=== PATIENT | female | born 1950 | race Two or more races ===

== ENCOUNTER 2018-11-17 10:55 | Emergency (ER) | payer SELFPAY ==
[2018-11-17] MEDS ORDERED: MECLIZINE HCL 25 MG TABLET PO ONE (11:31)
[2018-11-17] MEDS ORDERED: NORMAL SALINE 1000 ML 1,000 ML IV ONE (11:32)
--- NOTE | 2018-11-17 11:42 | ER Document Report ---
ED General - General Chief Complaint: Dizziness Stated Complaint: DIZZINESS/VISION PROBLEMS Time Seen by Provider: 11/17/18 11:30 Primary Care Provider: ABBE QUINTERO MD [ACTIVE STAFF] - 11/19/18 TRAVEL OUTSIDE OF THE [place] IN LAST 30 DAYS: No - HPI Notes: Patient is a 68-year-old female with history of hypertension and type 2 diabetes who presents complaining of feeling dizzy and having right-sided headache and right-sided eye pain with double vision with the right eye being open over the past 2 days. No recent illness. She has not noticed any drainage from her eye or injury. She is able to eat and drink without difficulty. She is urinating normally. Patient has not fallen, but does feel unsteady when she is walking. This is not the worst headache of her life and did not reach maximal intensity at initial onset. Denies any fever, head injury, neck pain, changes in speech/mentation/hearing, URI, sore throat, chest pain, palpitations, syncope, cough, shortness of breath, wheeze, dyspnea, abdominal pain, nausea/vomiting/diarrhea, urinary retention, dysuria, hematuria, loss of control of bowel or bladder, numbness/tingling, saddle anesthesia, muscle par alysis/weakness, or rash. - Related Data Allergies/Adverse Reactions: meperidine HCl [From Demerol] Allergy (Verified 08/10/13 08:10) increased SOB Past Medical History - Social History Smoking Status: Current Every Day Smoker Frequency of alcohol use: None Drug Abuse: None Family History: Reviewed & Not Pertinent Patient has suicidal ideation: No Patient has homicidal ideation: No - Past Medical History Cardiac Medical History: Reports: Hx Hypertension Pulmonary Medical History: Denies: Hx Tuberculosis Endocrine Medical History: Reports: Hx Diabetes Mellitus Type 2 Psychiatric Medical History: Denies: Hx Depression - Immunizations Hx Diphtheria, Pertussis, Tetanus Vaccination: Yes Review of Systems - Review of Systems -: Yes All other systems reviewed and negative Physical Exam - Vital signs Vitals: Temp Pulse Resp BP Pulse Ox 98.2 F 98 15 147/86 H 92 11/17/18 11:14 11/17/18 11:14 11/17/18 11:14 11/17/18 11:14 11/17/18 11:14 - Notes Notes: PHYSICAL EXAMINATION: GENERAL: Well-appearing, well-nourished and in no acute distress. A&Ox4. Answers questions appropriately. HEAD: Atraumatic, normocephalic. Non-tender. EYES: Pupils equal round and reactive to light, extraocular movements intact, sclera anicteric, conjunctiva are normal. No nystagmus. + mild tenderness rt orbit near trigeminal area. ENT: EAC clear b/l. TM's intact b/l without erythema, fluid, or perforation. Nares patent and without discharge. oropharynx clear without exudates. No tonsilar hypertrophy or erythema. Moist mucous membranes. No sinus tenderness. Wood's lamp/flourescein: No abrasion, laceration, ulceration, or lyle sign noted. No obvious foreign body appreciated. Tonopen: Pressure in each eye 23 average b/l. NECK: Normal range of motion, supple without lymphadenopathy. No rigidity/ meningismus. No midline tenderness. LUNGS: Breath sounds clear to auscultation bilaterally and equal. No wheezes rales or rhonchi. HEART: Regular rate and rhythm without murmurs, rubs, gallops. ABDOMEN: Soft, nontender, nondistended abdomen. No guarding, no rebound. Normal bowel sounds present. No CVA tenderness bilaterally. Musculoskeletal: Ext b/l: FROM to passive/active. Strength 5+/5. No deficits noted. No bony tenderness of extremities. Extremities: No cyanosis, clubbing, or edema b/l. Peripheral pulses 2+. Capillary refill less than 2 seconds. NEUROLOGICAL: NIH 0. GCS 15. Cranial nerves grossly intact. Normal speech, normal gait and can ambulate in room w/o difficulty. Normal sensory, motor exams. Reflexes 2+ b/l. GREGORY's negative. Pronator drift negative. Heel/santiago, finger/nose wnl. Romberg neg. PSYCH: Normal mood, normal affect. SKIN: Warm, Dry, normal turgor, no rashes or lesions noted. Course - Re-evaluation Re-evalutation: 11/17/18 13:[address] Hernandez who agrees with dispo/plan (no further work up warranted): Patient is an afebrile, well-hydrated, 68-year-old female who presents to the ED with a headache and vision change, suspect trigeminal neuralgia. Vitals are acceptable without any significant tachycardia, tachypnea, or hypoxia. PE is otherwise unremarkable for any focal neurological deficits. NIH 0, GCS 15, cranial nerves grossly intact. CT head and labs unremarkable including cardiacs and ESR/CRP. Eye exam unremarkable with equal pressures b/l. No other labs or imaging warranted at this time based on H&P. Pt has not had any CP, SOB, SIERRA, syncope. Patient was given Toradol, meclizine, and benadryl which has improved her headache. She is nontoxic-appearing and is tolerating p.o. without any difficulties. Low suspicion for any acute glaucoma, temporal arteritis, meningitis, intracranial hemorrhage, ischemic stroke, Temporal arteritis, or fracture at this time. Patient is aware that this condition can change from initial presentation and that she needs to monitor symptoms closely for any acute changes. Rx for gabapentin. Recheck with your PCM/neurologist in 3-5 days. Return to the ED with any worsening/concerning symptoms otherwise as reviewed in discharge. Patient is in agreement. - Vital Signs Vital signs: Temp Pulse Resp BP Pulse Ox 98.2 F 98 15 147/86 H 92 11/17/18 11:14 11/17/18 11:14 11/17/18 11:14 11/17/18 11:14 11/17/18 11:14 - Laboratory Result Diagrams: 11/17/18 11:45 11/17/18 11:45 Laboratory results interpreted by me: 11/17/18 11/17/18 11:45 11:45 RDW 14.8 H Est GFR (MDRD) Non-Af 58 L Glucose 115 H Discharge - Discharge Clinical Impression: Trigeminal neuralgia Headache Qualifiers: Headache type: unspecified Headache chronicity pattern: acute headache Intractability: not intractable Qualified Code(s): R51 - Headache Condition: Stable Disposition: HOME, SELF-CARE Instructions: Trigeminal Neuralgia ([facility]) Additional Instructions: Rest, Ice/cool compress Tylenol/ibuprofen as needed Light stretches daily Strength exercises as able Moist heat and massage may help F/u with your PCP in 2-3 days for a recheck Consider consult(s) with Neurology for ongoing/worsening symptoms Return to the ED with any worsening symptoms and/or development of fever, headache, changes in behavior/mentation/vision/speech, chest pain, palpitations, syncope, shortness of breath, trouble breathing, abdominal pain, n/v/d, blood in stool/urine, loss of control of bowel/bladder, urinary retention, muscle weakness/paralysis, saddle anesthesia, numbness/tingling, or other worsening symptoms that are concerning to you. Prescriptions: Gabapentin [Neurontin 100 mg Capsule] 100 mg PO ASDIR PRN #15 capsule PRN Reason: Hydrocodone/Acetaminophen [Starbuck 5-325 mg Tablet] 1 tab PO TID PRN #10 tablet PRN Reason: Forms: Elevated Blood Pressure Referrals: ABBE QUINTERO MD [ACTIVE STAFF] - 11/19/18
[2018-11-17 11:58] LABS: ABSOLUTE BASOPHILS # (AUTO) 0.1 10^3/uL (0.0-0.2); ABSOLUTE EOSINOPHILS # (AUTO) 0.2 10^3/uL (0.0-0.6); ABSOLUTE MONOCYTES (AUTO) 0.5 10^3/uL (0.1-1.4); ABSOLUTE NEUT (AUTO) 4.7 10^3/uL (1.7-8.2); BASOPHILS % (AUTO) 0.7 % (0-2); EOSINOPHILS % (AUTO) 2.7 % (0-6); HEMATOCRIT 43.5 % (36.0-47.0); HEMOGLOBIN 14.6 g/dL (12.0-15.5); LYMPHOCYTES % (AUTO) 35.4 % (13-45); MEAN CORPUSCULAR HEMOGLOBIN 29.1 pg (27.0-33.4); MEAN CORPUSCULAR HGB CONC 33.4 g/dL (32.0-36.0); MEAN CORPUSCULAR VOLUME 87 fl (80-97); MONOCYTES % (AUTO) 6.1 % (3-13); PLATELET COUNT 272 10^3/uL (150-450); RED BLOOD COUNT 5.01 10^6/uL (3.72-5.28); RED CELL DISTRIBUTION WIDTH 14.8 % (11.5-14.0); SEGMENTED NEUTROPHILS % (AUTO) 55.1 % (42-78); TOTAL CELLS COUNTED % (AUTO) 100 %; WHITE BLOOD COUNT 8.5 10^3/uL (4.0-10.5)
--- NOTE | 2018-11-17 12:11 | RADIOLOGY REPORT (SQ) ---
EXAM DESCRIPTION: CT HEAD WITHOUT COMPLETED DATE/TIME: 11/17/2018 11:59 am REASON FOR STUDY: Rt GOMEZ, double vision COMPARISON: None. TECHNIQUE: Axial images acquired through the brain without intravenous contrast. Images reviewed wi th bone, brain and subdural windows. Additional sagittal and coronal reconstructions were generated. Images stored on PACS. All CT scanners at this facility use dose modulation, iterative reconstruction, and/or weight based d osing when appropriate to reduce radiation dose to as low as reasonably achievable (ALARA). [facility]: Dose Right [facility]: CareDose [facility]: Dose Right [facility]: Teradose 4D [facility]: [employer] RADIATION DOSE: CT Rad equipment meets quality standard of care and radiation dose reduction techniq ues were employed. CTDIvol: 53.2 mGy. DLP: 1017 mGy-cm. mGy. LIMITATIONS: None. FINDINGS: VENTRICLES: Normal size and contour. CEREBRUM: No masses. No hemorrhage. No midline shift. No evidence for acute infarction. Normal gra y/white matter differentiation. No areas of low density in the white matter. CEREBELLUM: No masses. No hemorrhage. No alteration of density. No evidence for acute infarction. EXTRAAXIAL SPACES: No fluid collections. No masses. ORBITS AND GLOBE: No intra- or extraconal masses. Normal contour of globe without masses. CALVARIUM: No fracture. PARANASAL SINUSES: No fluid or mucosal thickening. SOFT TISSUES: No mass or hematoma. OTHER: No other significant finding. IMPRESSION: No acute intracranial pathology. No noncontrast CT findings to explain headache. EVIDENCE OF ACUTE STROKE: NO. COMMENT: Quality ID # [id number]: Final reports with documentation of one or more dose reduction techniques (e.g., Automated exposure control, adjustment of the mA and/or kV according to patient size, use of iterative reconstruction technique) TECHNICAL DOCUMENTATION: JOB ID: [id number] [employer]- All Rights Reserved Reading location - IP/workstation name: [email or web address]
[2018-11-17 12:17] LABS: ALBUMIN 4.2 g/dL (3.5-5.0); ALKALINE PHOSPHATASE 104 U/L (38-126); ANION GAP 10 (5-19); ASPARTATE AMINO TRANSFERASE 20 U/L (14-36); BILIRUBIN,DIRECT 0.1 mg/dL (0.0-0.4); BILIRUBIN,TOTAL 0.6 mg/dL (0.2-1.3); BLOOD UREA NITROGEN 17 mg/dL (7-20); CALCIUM 9.9 mg/dL (8.4-10.2); CARBON DIOXIDE 28 mmol/L (22-30); CHLORIDE 100 mmol/L (98-107); GLUCOSE 115 mg/dL (75-110); POTASSIUM 4.2 mmol/L (3.6-5.0); TOTAL PROTEIN 8.1 g/dL (6.3-8.2)
[2018-11-17 12:18] LABS: C-REACTIVE PROTEIN < 5.0 mg/L (<10.0)
[2018-11-17] MEDS ORDERED: TETRACAINE HCL 0.5% OPH SOLN 4 ML OD ONE (12:24)
[2018-11-17 12:35] LABS: ERYTHROCYTE SEDIMENTATION RATE 30 mm/hr (0-30)
[2018-11-17] MEDS ORDERED: KETOROLAC TROMETHAMINE INJ/PF 30 MG/1 ML SDV IV ONE (13:21)
[2018-11-17] MEDS ORDERED: DIPHENHYDRAMINE HCL 50 MG/ML VIAL IV ONE (13:21)
[2018-11-17 13:55] VITALS: BP 141/80
--- NOTE | 2018-11-17 22:27 | EKG REPORT ---
SEVERITY:- BORDERLINE ECG - SINUS RHYTHM BORDERLINE RIGHT AXIS DEVIATION BORDERLINE T ABNORMALITIES, DIFFUSE LEADS : Confirmed by: Heather Mosley 17-Nov-2018 22:26:49
== END 2018-11-17 14:00 | disposition home or self-care (01) ==
LOC: ER 10:55
DX: G50.0 Trigeminal neuralgia (principal); R42 Dizziness and giddiness; H57.11 Ocular pain, right eye; H53.2 Diplopia; F17.200 Nicotine dependence, unspecified, uncomplicated; E11.9 Type 2 diabetes mellitus without complications; I10 Essential (primary) hypertension
CPT/HCPCS: 93005; 99284; 96361; 96374; 96375; 36415; 85025; 85652; 86140; 80053; 84484; 70450; 93010; J1200; J1885; J7030; J3490

== ENCOUNTER 2019-01-12 09:36 | Emergency (ER) | payer SELFPAY ==
[2019-01-12] MEDS ORDERED: IBUPROFEN 800 MG TABLET PO ONE (10:14)
--- NOTE | 2019-01-12 10:16 | ER Document Report ---
ED Medical Screen (RME) - General Chief Complaint: Hand Swelling Stated Complaint: RIGHT HAND PAIN, SWELLING Time Seen by Provider: 01/12/19 10:10 Mode of Arrival: Ambulatory Information source: Patient Notes: 68-year-old female with history of diabetes presents emergency department with right hand swelling and pain. Reports that started Saturday after she sliced a pineapple. No laceration to her hand no known insect bite. Patient reports severe pain, erythema warmth and swelling noted to the right hand. Denies trauma. I have greeted and performed a rapid initial assessment of this patient. A comprehensive ED assessment and evaluation of the patient, analysis of test results and completion of the medical decision making process will be conducted by additional ED providers. Dictation of this chart was performed using voice recognition software; therefore, there may be some unintended grammatical errors. TRAVEL OUTSIDE OF THE [place] IN LAST 30 DAYS: No - Related Data Allergies/Adverse Reactions: meperidine HCl [From Demerol] Allergy (Verified 08/10/13 08:10) increased SOB Past Medical History - Social History Frequency of alcohol use: None Drug Abuse: None - Past Medical History Cardiac Medical History: Reports: Hx Hypertension Pulmonary Medical History: Denies: Hx Tuberculosis Endocrine Medical History: Reports: Hx Diabetes Mellitus Type 2 Psychiatric Medical History: Denies: Hx Depression Past Surgical History: Reports: Hx Appendectomy, Hx Breast Surgery, Hx Oral Surgery - Immunizations Hx Diphtheria, Pertussis, Tetanus Vaccination: Yes Physical Exam - Vital signs Vitals: Temp Pulse Resp BP Pulse Ox 98.3 F 84 18 185/97 H 97 01/12/19 09:43 01/12/19 09:43 01/12/19 09:43 01/12/19 09:43 01/12/19 09:43 Course - Vital Signs Vital signs: Temp Pulse Resp BP Pulse Ox 98.3 F 84 18 185/97 H 97 01/12/19 09:43 01/12/19 09:43 01/12/19 09:43 01/12/19 09:43 01/12/19 09:43
--- NOTE | 2019-01-12 10:56 | RADIOLOGY REPORT (SQ) ---
EXAM DESCRIPTION: HAND RIGHT 3 VIEWS COMPLETED DATE/TIME: 01/12/2019 10:48 am REASON FOR STUDY: pain swelling COMPARISON: None. EXAM PARAMETERS: NUMBER OF VIEWS: Three views. TECHNIQUE: AP, lateral and oblique radiographic images acquired of the right hand. LIMITATIONS: None. FINDINGS: MINERALIZATION: Normal. BONES: No acute fracture or dislocation. No worrisome bone lesions. No significant osteophytes. JOINTS: No erosions. No marisol-articular osteopenia. No chondrocalcinosis. SOFT TISSUES: No swelling. No calcifications. OTHER: No other significant finding. IMPRESSION: NEGATIVE STUDY OF THE RIGHT HAND. NO EXPLANATION FOR PAIN. TECHNICAL DOCUMENTATION: JOB ID: [id number] [employer]- All Rights Reserved Reading location - IP/workstation name: [email or web address]
[2019-01-12 11:31] LABS: ABSOLUTE BASOPHILS # (AUTO) 0.1 10^3/uL (0.0-0.2); ABSOLUTE EOSINOPHILS # (AUTO) 0.2 10^3/uL (0.0-0.6); ABSOLUTE LYMPHOCYTES (AUTO) 1.8 10^3/uL (0.5-4.7); ABSOLUTE MONOCYTES (AUTO) 0.9 10^3/uL (0.1-1.4); ABSOLUTE NEUT (AUTO) 8.7 10^3/uL (1.7-8.2); BASOPHILS % (AUTO) 0.5 % (0-2); EOSINOPHILS % (AUTO) 1.7 % (0-6); HEMATOCRIT 45.2 % (36.0-47.0); HEMOGLOBIN 15.4 g/dL (12.0-15.5); LYMPHOCYTES % (AUTO) 15.4 % (13-45); MEAN CORPUSCULAR VOLUME 88 fl (80-97); MONOCYTES % (AUTO) 7.5 % (3-13); PLATELET COUNT 236 10^3/uL (150-450); RED BLOOD COUNT 5.12 10^6/uL (3.72-5.28); RED CELL DISTRIBUTION WIDTH 14.4 % (11.5-14.0); SEGMENTED NEUTROPHILS % (AUTO) 74.9 % (42-78); TOTAL CELLS COUNTED % (AUTO) 100 %; WHITE BLOOD COUNT 11.6 10^3/uL (4.0-10.5)
[2019-01-12 11:53] LABS: ALBUMIN 4.6 g/dL (3.5-5.0); ALKALINE PHOSPHATASE 119 U/L (38-126); ANION GAP 11 (5-19); ASPARTATE AMINO TRANSFERASE 19 U/L (14-36); BILIRUBIN,DIRECT 0.1 mg/dL (0.0-0.4); BILIRUBIN,TOTAL 0.6 mg/dL (0.2-1.3); BLOOD UREA NITROGEN 11 mg/dL (7-20); CALCIUM 9.6 mg/dL (8.4-10.2); CARBON DIOXIDE 28 mmol/L (22-30); CHLORIDE 99 mmol/L (98-107); GLUCOSE 124 mg/dL (75-110); POTASSIUM 3.9 mmol/L (3.6-5.0)
[2019-01-12] MEDS ORDERED: CEFTRIAXONE INJ 1000 MG VIAL IV ONE (12:29)
[2019-01-12 13:23] VITALS: BP 172/98
--- NOTE | 2019-01-12 15:15 | ER Document Report ---
ED Hand/Wrist Injury - General Chief Complaint: Hand Swelling Stated Complaint: RIGHT HAND PAIN, SWELLING Time Seen by Provider: 01/12/19 10:10 Primary Care Provider: ABBE QUINTERO MD [Primary Care Provider] - Follow up as needed Mode of Arrival: Ambulatory Notes: Ms. Owens is a 68 yo f w/ PMH HTN, HLD, and B12 efficiency presenting to the ED for right hand pain and swelling. Patient states that it began approximately 3 days ago. She had cut approximately 6-7 pineapples at home for her and her family. Later on that evening, she noted some mild erythema to the dorsal aspect of with some mild swelling and mild pain. However she states in the past 24 hours the swelling and pain has become significantly worse as well as the erythema spreading to the entire dorsum of her hand. She denies any cuts or bites. No falls or other trauma. She denies any fever, abdominal pain, nausea, vomiting or diarrhea. TRAVEL OUTSIDE OF THE [place] IN LAST 30 DAYS: No - Related Data Allergies/Adverse Reactions: meperidine HCl [From Demerol] Allergy (Verified 08/10/13 08:10) increased SOB Past Medical History - General Information source: Patient - Social History Smoking Status: Current Every Day Smoker Frequency of alcohol use: None Drug Abuse: None Family History: Reviewed & Not Pertinent Patient has suicidal ideation: No Patient has homicidal ideation: No - Past Medical History Cardiac Medical History: Reports: Hx Hypertension Pulmonary Medical History: Denies: Hx Tuberculosis Endocrine Medical History: Reports: Hx Diabetes Mellitus Type 2 Psychiatric Medical History: Denies: Hx Depression Past Surgical History: Reports: Hx Appendectomy, Hx Breast Surgery, Hx Oral Surgery - Immunizations Hx Diphtheria, Pertussis, Tetanus Vaccination: Yes Review of Systems - Review of Systems Constitutional: See HPI EENT: No symptoms reported Cardiovascular: No symptoms reported Respiratory: No symptoms reported Gastrointestinal: No symptoms reported Genitourinary: No symptoms reported Female Genitourinary: No symptoms reported Musculoskeletal: See HPI Skin: See HPI Hematologic/Lymphatic: No symptoms reported Neurological/Psychological: No symptoms reported Physical Exam - Vital signs Vitals: Temp Pulse Resp BP Pulse Ox 98.3 F 84 18 185/97 H 97 01/12/19 09:43 01/12/19 09:43 01/12/19 09:43 01/12/19 09:43 01/12/19 09:43 Interpretation: Hypertensive - General General appearance: Appears well, Alert - HEENT Head: Normocephalic, Atraumatic Eyes: Normal Pupils: PERRL - Respiratory Respiratory status: No respiratory distress Chest status: Nontender Breath sounds: Normal Chest palpation: Normal - Cardiovascular Rhythm: Regular Heart sounds: Normal auscultation Murmur: No - Abdominal Inspection: Normal Distension: No distension Bowel sounds: Normal Tenderness: Nontender Organomegaly: No organomegaly - Back Back: Normal, Nontender - Extremities General upper extremity: Other - Dorsum of the right hand with is warmth, erythematous, swollen and tender to palpation. Patient has normal radial pulses, 2+ equal bilaterally. She has slight decrease in range of motion of the right hand and fingers secondary to swelling and pain however she is able to perform motor function with median, ulnar and radial nerve. General lower extremity: Normal inspection, Nontender, Normal color, Normal ROM, Normal temperature, Normal weight bearing. No: Amira's sign - Neurological Neuro grossly intact: Yes Cognition: Normal Orientation: AAOx4 Ronni Coma Scale Eye Opening: Spontaneous Ronni Coma Scale Verbal: Oriented Ronni Coma Scale Motor: Obeys Commands [place] Coma Scale Total: 15 Speech: Normal Motor strength normal: LUE, RUE, LLE, RLE Sensory: Normal - Psychological Associated symptoms: Normal affect, Normal mood - Skin Skin Temperature: Warm Skin Moisture: Dry Skin Color: Normal Course - Re-evaluation Re-evalutation: Patient is generally well-appearing and nontoxic. Initial vitals notable for elevated blood pressure. Differential diagnosis includes cellulitis, fracture (less likely), gout, flexor tenosynovitis (unlikely) Labs and x-ray ordered from triage. Patient was given an ice pack as well as Motrin for pain control. 01/12/19 12:39 Labs notable for mild leukocytosis without significant left shift. H&H is stable. CMP within normal limits. Given the warmth, tenderness, swelling and erythema, concern for cellulitis. Patient given 1 g of ceftriaxone here in the ED. 01/12/19 14:40 Recommended she rest, ice and elevate her hand. Patient instructed to make sure she continue using the antibiotics prescribed, Keflex 3 times daily for 7 days. Patient given return precautions and instructed to return to the ED should her swelling worsen, erythema spread, pain worsen, or decreased range of motion. Patient also recommended to yogurt to help prevent diarrhea often associated with antibiotic use. - Vital Signs Vital signs: Temp Pulse Resp BP Pulse Ox 98.2 F 84 15 172/98 H 95 01/12/19 13:01 01/12/19 09:43 01/12/19 13:01 01/12/19 13:01 01/12/19 13:01 - Laboratory Result Diagrams: 01/12/19 11:00 01/12/19 11:00 Laboratory results interpreted by me: 01/12/19 01/12/19 11:00 11:00 WBC 11.6 H RDW 14.4 H Absolute Neuts (auto) 8.7 H Glucose 124 H Total Protein 9.0 H Discharge - Discharge Clinical Impression: Cellulitis of hand, Redness and swelling of hand, Hand pain Condition: Good Disposition: HOME, SELF-CARE Instructions: Cellulitis ([facility]), Ice & Elevation ([facility]) Additional Instructions: It is important that you take the full course of antibiotics as prescribed, even if your hand swelling, pain and redness improved. You need to finish all the antibiotics. Do not start antibiotics until tomorrow morning as you were given IV antibiotics here in the ED. I would also recommend that you return to the ED if the redness, swelling, or pain worsens in any way. I would also recommend that you make sure that you apply ice to the back of the hand and continue e levating it to prevent worsening swelling. If you develop worsening pain, fever, or any other concerning symptoms, return to the ED for further evaluation. Prescriptions: Cephalexin Monohydrate [Keflex 500 mg Capsule] 500 mg PO TID 7 Days #21 capsule Referrals: ABBE QUINTERO MD [Primary Care Provider] - Follow up as needed
== END 2019-01-12 15:15 | disposition home or self-care (01) ==
LOC: ER 09:36
DX: L03.113 Cellulitis of right upper limb (principal); M79.641 Pain in right hand; M79.89 Other specified soft tissue disorders; F17.200 Nicotine dependence, unspecified, uncomplicated; I10 Essential (primary) hypertension; E11.9 Type 2 diabetes mellitus without complications
CPT/HCPCS: 36415; 87040; 85025; 80053; 73130; J0696